=== PATIENT | female | born 1975 | race American Indian/Alaskan Native ===

== ENCOUNTER 2018-09-28 21:49 | Emergency (ER) | payer OTHER ==
[2018-09-28] MEDS ORDERED: IBUPROFEN ONE (23:07)
[2018-09-28] MEDS ORDERED: IBUPROFEN PO ONE (23:08)
[2018-09-29] MEDS ORDERED: PERCOCET 5/325 PO ONE (00:56)
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
[2018-09-29 02:08] VITALS: BP 136/67
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
== END 2018-09-29 03:15 | disposition home or self-care (01) ==
LOC: ED 21:49
DX: S20.01XA Contusion of right breast, initial encounter (principal); S89.92XA Unspecified injury of left lower leg, initial encounter; M25.531 Pain in right wrist; M25.532 Pain in left wrist; R10.9 Unspecified abdominal pain; V89.2XXA Person injured in unspecified motor-vehicle accident, traffic, initial encounter; Y93.89 Activity, other specified; Y99.8 Other external cause status; Y92.410 Unspecified street and highway as the place of occurrence of the external cause
CPT/HCPCS: 71250; 74176